=== PATIENT | male | born 1990 | race African-American/Black ===

== ENCOUNTER 2017-02-23 13:12 | Emergency (ER) | payer SELFPAY ==
[~2017-02-23] VITALS: Ht 175.3 cm; Wt 94.5 kg
[2017-02-23 14:09] LABS: HEMATOCRIT 46.8 % (38.0-50.0); MCH 31.6 PG (29.0-34.0); MCHC 34.6 G/DL (30.0-36.0); MCV 91.2 FL (86-99); PLATELET COUNT 166 K/uL (156-360); RBC DIS.WIDTH-CV 13.5 % (11.8-14.6); RBC DIS.WIDTH-SD 45.7 % (39-53); RED BLOOD COUNT 5.13 M/uL (4.00-5.50); WHITE BLOOD COUNT 4.5 K/uL (4.1-10.2)
[2017-02-23 14:22] LABS: CHLORIDE 105 mEq/L (99-109); POTASSIUM 4.6 mEq/L (3.7-5.4); SODIUM 140 mEq/L (136-147)
[2017-02-23 14:25] LABS: GLUCOSE 130 mg/dL (70-99)
[2017-02-23 14:26] LABS: ANION GAP 6 MEQ/L (2-14)
[2017-02-23 14:27] LABS: TOTAL BILIRUBIN 0.5 mg/dL (0.0-1.0)
[2017-02-23 14:28] LABS: ALKALINE PHOSPHATASE 70 IU/L (3-129)
[2017-02-23 14:29] LABS: GFR ESTIMATE (CALCULATED) > 59 mL/min/; UREA NITROGEN (BUN) 13 mg/dL (9-23)
[2017-02-23 14:47] LABS: ADD MIUA? YES; BILIRUBIN NEGATIVE; BLOOD NEGATIVE; COLOR YELLOW ((YELLOW)); GLUCOSE (STRIP) NEGATIVE; KETONES NEGATIVE; LEUKOCYTES NEGATIVE; NITRITE NEGATIVE; PROTEIN (STRIP) 100; SPECIFIC GRAVITY 1.017 (1.000-1.030); UROBILINOGEN 0.2 MG/DL (0.2-1.0)
[2017-02-23 14:54] LABS: BACTERIA RARE /HPF; CALCIUM OXALATE CRYSTALS 2+ /HPF; EPITHELIAL CELLS RARE /HPF; MUCUS TRACE /LPF; RED BLOOD CELLS 0-5 /HPF (0-5); UCUL ADDED? NO; WHITE BLOOD CELLS 0-5 /HPF (0-5)
[2017-02-23] MEDS ORDERED: ZOFRAN ODT4 MG PO (15:19)
[2017-02-23 16:09] VITALS: BP 123/74
== END 2017-02-23 16:16 | disposition home or self-care (01) ==
LOC: EME 13:12 → EXP 13:12
DX: B34.9 Viral infection, unspecified (principal); R73.9 Hyperglycemia, unspecified; F17.200 Nicotine dependence, unspecified, uncomplicated
CPT/HCPCS: 80053; 81003; 85027; 99281; 99283

== ENCOUNTER 2017-08-26 02:19 | Emergency (ER) | payer OTHER ==
[~2017-08-26] VITALS: Ht 175.3 cm; Wt 93.6 kg
[~2017-08-26 02:19] MED LIST: ZOFRAN ODT4 MG PO
[2017-08-26 04:32] VITALS: BP 142/98
== END 2017-08-26 04:33 | disposition home or self-care (01) ==
LOC: EME 02:19
DX: S60.221A Contusion of right hand, initial encounter (principal); Y04.0XXA Assault by unarmed brawl or fight, initial encounter; F17.200 Nicotine dependence, unspecified, uncomplicated
CPT/HCPCS: 73130; 99281; 99283